=== PATIENT | male | born 1950 | race African-American/Black ===

== ENCOUNTER 2017-11-01 12:33 | Emergency (ER) | payer MEDICARE ==
[~2017-11-01] VITALS: Ht 177.8 cm; Wt 85.0 kg
[2017-11-01] MEDS ORDERED: ASPI-986 PO (12:51)
[2017-11-01] MEDS ORDERED: LISI2.5T47 PO (12:51)
[2017-11-01] MEDS ORDERED: HJ10 IJ (12:51)
[2017-11-01] MEDS ORDERED: ATOR10TA PO (12:51)
[2017-11-01] MEDS ORDERED: FURO-152 PO (12:51)
[2017-11-01] MEDS ORDERED: CARV3.1242 PO (12:51)
[2017-11-01] MEDS ORDERED: LORA2VIA33 IJ (12:51)
[2017-11-01 17:02] VITALS: BP 144/99
== END 2017-11-01 17:15 | disposition home or self-care (01) ==
LOC: ER 12:33
DX: S62.642A Nondisplaced fracture of proximal phalanx of right middle finger, initial encounter for closed fracture (principal); S62.614A Displaced fracture of proximal phalanx of right ring finger, initial encounter for closed fracture; S00.03XA Contusion of scalp, initial encounter; J44.9 Chronic obstructive pulmonary disease, unspecified; I10 Essential (primary) hypertension; Z79.82 Long term (current) use of aspirin; F03.90 Unspecified dementia, unspecified severity, without behavioral disturbance, psychotic disturbance, mood disturbance, and anxiety; W01.0XXA Fall on same level from slipping, tripping and stumbling without subsequent striking against object, initial encounter; Y93.89 Activity, other specified; Y92.89 Other specified places as the place of occurrence of the external cause; Y99.8 Other external cause status
CPT/HCPCS: 29130; 70450; 73120; 99284

== ENCOUNTER 2018-05-03 13:48 | Inpatient (IN) | payer MEDICARE, MEDICAID ==
[~2018-05-03] VITALS: Ht 182.9 cm; Wt 85.7 kg
[~2018-05-03 13:48] MED LIST: ASPI-986 PO; ATOR10TA PO; CARV3.1242 PO; FURO-152 PO; HJ10 IJ; LISI2.5T47 PO; LORA2VIA34 IJ
[2018-05-03] MEDS ORDERED: ACETAMINOPHEN 325MG TABLET PO PRN (18:45)
[2018-05-03] MEDS ORDERED: OXYCODONE HCL/ACETAMINOPHEN 5/325MG TABLET PO PRN (18:45)
[2018-05-03] MEDS ORDERED: IPRATROPIUM/ALBUTEROL 0.5-3(2.5)MG/3ML NEB HHN PRN (18:45)
[2018-05-03 19:56] VITALS: BP 125/70
[2018-05-03 20:00] VITALS: BP 127/70
[2018-05-03] MEDS ORDERED: CLONIDINE 0.1MG TABLET PO PRN (20:15)
[2018-05-03] MEDS ORDERED: ONDANSETRON HCL 4MG/2ML INJ IV PRN (20:15)
[2018-05-03] MEDS ORDERED: ENOXAPARIN 40MG/0.4ML SYR SUBCUT SCH (20:15)
[2018-05-03] MEDS ORDERED: NITROGLYCERIN 0.4MG TABLET SL SL PRN (20:30)
[2018-05-03] MEDS: BACLOFEN 10MG TABLET PO SCH (20:34)
[2018-05-03] MEDS: ASCORBIC ACID 500 MG TABLET PO SCH (20:34)
[2018-05-03] MEDS: CARVEDILOL 3.125 MG TABLET PO SCH (20:35)
[2018-05-03] MEDS: HYDROCODONE/ACETAMINOPHEN 5/325MG TABLET PO PRN (20:35)
[2018-05-03] MEDS: SENNOSIDES/DOCUSATE SOD 8.6/50MG TABLET PO SCH (20:35)
[2018-05-03] MEDS: LIDOCAINE 5% PATCH TOP SCH (22:00)
[2018-05-03 22:07] LABS: BASOPHILS % 0.8 % (0.0-2.0); EOSINOPHILS % 10.5 % (0.0-5.0); HEMATOCRIT. 25.5 % (42.0-52.0); HEMOGLOBIN. 9.1 g/dL (14.0-18.0); LYMPHOCYTES % 46.1 % (20.0-50.0); MEAN CORPUSCULAR HEMOGLOBIN 39.1 pg (28.0-32.0); MEAN CORPUSCULAR VOLUME 109.6 fL (80.0-94.0); MONOCYTES % 11.1 % (2.0-8.0); NEUTROPHILS % 31.5 % (40.0-76.0); RED BLOOD CELL COUNT 2.33 mill/uL (4.7-6.1); RED CELL DISTRIBUTION WIDTH 14.2 % (11.6-14.6)
[2018-05-03 22:14] LABS: CHLORIDE 109 mEq/L (98-107)
[2018-05-03 22:23] LABS: HDL CHOLESTEROL 41 mg/dL (40-59); LDL CHOLESTEROL 46 mg/dL (5-100); T4 FREE 1.06 ng/dL (0.76-1.46)
[2018-05-03 22:28] LABS: MEAN PLATELET VOLUME 7.2 fl (7.4-10.4); PLATELET 59 x1000/uL (130-400)
[2018-05-03] MEDS: FAMOTIDINE 20MG TABLET PO SCH (23:00)
[2018-05-04 02:14] LABS: FOLIC ACID (FOLATE) SERUM 13.9 ng/mL (>5.38); TOTAL IRON BINDING CAPACITY 164 ug/dL (250-450)
[2018-05-04] MEDS: IPRATROPIUM/ALBUTEROL 0.5-3(2.5)MG/3ML NEB HHN SCH ×4 (03:00→20:10)
[2018-05-04 04:00] VITALS: BP 125/65
[2018-05-04] MEDS: BACLOFEN 10MG TABLET PO SCH ×3 (05:14→21:11)
[2018-05-04 08:00] VITALS: BP 132/67
[2018-05-04] MEDS: BUDESONIDE 0.5MG/2ML NEB HHN SCH ×3 (09:06→20:10)
[2018-05-04] MEDS: FAMOTIDINE 20MG TABLET PO SCH ×2 (09:41→21:11)
[2018-05-04] MEDS: MULTIVITAMINS,THER W-MINERALS TABLET PO SCH (09:42)
[2018-05-04] MEDS: ASPIRIN 325MG EC TABLET PO SCH (09:42)
[2018-05-04] MEDS: CARVEDILOL 3.125 MG TABLET PO SCH ×2 (09:42→21:00)
[2018-05-04] MEDS: ASCORBIC ACID 500 MG TABLET PO SCH ×2 (09:42→21:11)
[2018-05-04] MEDS: FUROSEMIDE 40MG TABLET PO SCH ×2 (09:43→17:22)
[2018-05-04] MEDS: LISINOPRIL 5MG TABLET PO SCH (09:43)
[2018-05-04] MEDS: SPIRONOLACTONE 50MG TABLET PO SCH (09:43)
[2018-05-04] MEDS: DOCUSATE SODIUM 100MG CAPSULE PO SCH ×2 (09:44→17:22)
[2018-05-04] MEDS: ZINC SULFATE 220 MG ( 50 ) CAPSULE PO SCH (09:44)
[2018-05-04] MEDS: LIDOCAINE 5% PATCH TOP SCH ×2 (09:45→21:12)
[2018-05-04 12:00] VITALS: BP 122/74
[2018-05-04 16:00] VITALS: BP 123/60
[2018-05-04 20:00] VITALS: BP 108/52
[2018-05-04] MEDS: ZOLPIDEM TARTRATE 5MG TABLET PO PRN (21:11)
[2018-05-04] MEDS: LORATADINE 10MG TABLET PO SCH (21:12)
[2018-05-04] MEDS: SENNOSIDES/DOCUSATE SOD 8.6/50MG TABLET PO SCH (21:12)
[2018-05-04] MEDS: FLUTICASONE PROPIONATE 50MCG/SPRAY BOTTLE BOTHNSTRLS SCH (21:12)
[2018-05-04 21:42] LABS: HEPATITIS B SURFACE ANTIGEN NEGATIVE
[2018-05-04 22:12] LABS: HEPATITIS A AB IGM NEGATIVE (NEGATIVE)
[2018-05-05] VITALS: BP 126/54
[2018-05-05] MEDS: IPRATROPIUM/ALBUTEROL 0.5-3(2.5)MG/3ML NEB HHN SCH ×4 (00:05→20:19)
[2018-05-05 04:00] VITALS: BP 112/63
[2018-05-05] MEDS: BACLOFEN 10MG TABLET PO SCH ×3 (05:18→21:13)
[2018-05-05] MEDS: HYDROCODONE/ACETAMINOPHEN 5/325MG TABLET PO PRN (05:18)
[2018-05-05] MEDS: BUDESONIDE 0.5MG/2ML NEB HHN SCH ×2 (08:47→20:19)
[2018-05-05] MEDS: DOCUSATE SODIUM 100MG CAPSULE PO SCH ×2 (09:00→17:00)
[2018-05-05] MEDS: ASPIRIN 325MG EC TABLET PO SCH (09:26)
[2018-05-05] MEDS: ASCORBIC ACID 500 MG TABLET PO SCH ×2 (09:26→21:13)
[2018-05-05] MEDS: CARVEDILOL 3.125 MG TABLET PO SCH ×2 (09:26→21:00)
[2018-05-05] MEDS: LISINOPRIL 5MG TABLET PO SCH (09:27)
[2018-05-05] MEDS: FAMOTIDINE 20MG TABLET PO SCH ×2 (09:27→21:13)
[2018-05-05] MEDS: ZINC SULFATE 220 MG ( 50 ) CAPSULE PO SCH (09:28)
[2018-05-05] MEDS: MULTIVITAMINS,THER W-MINERALS TABLET PO SCH (09:28)
[2018-05-05] MEDS: FUROSEMIDE 40MG TABLET PO SCH ×2 (09:30→17:51)
[2018-05-05] MEDS: SPIRONOLACTONE 50MG TABLET PO SCH (09:30)
[2018-05-05] MEDS: FLUTICASONE PROPIONATE 50MCG/SPRAY BOTTLE BOTHNSTRLS SCH ×2 (09:31→21:13)
[2018-05-05] MEDS: LIDOCAINE 5% PATCH TOP SCH ×2 (09:32→21:12)
[2018-05-05 20:00] VITALS: BP 104/51
[2018-05-05] MEDS: LORATADINE 10MG TABLET PO SCH (21:13)
[2018-05-05] MEDS: ZOLPIDEM TARTRATE 5MG TABLET PO PRN (21:13)
[2018-05-05] MEDS: SENNOSIDES/DOCUSATE SOD 8.6/50MG TABLET PO SCH (21:13)
[2018-05-06] VITALS: BP 120/60
[2018-05-06 04:00] VITALS: BP 135/75
[2018-05-06] MEDS: BACLOFEN 10MG TABLET PO SCH ×3 (05:29→22:45)
[2018-05-06 08:00] VITALS: BP 127/68
[2018-05-06] MEDS: DOCUSATE SODIUM 100MG CAPSULE PO SCH ×3 (09:00→22:39)
[2018-05-06] MEDS: LISINOPRIL 5MG TABLET PO SCH (09:00)
[2018-05-06] MEDS: FUROSEMIDE 40MG TABLET PO SCH ×2 (09:00→16:47)
[2018-05-06] MEDS: FLUTICASONE PROPIONATE 50MCG/SPRAY BOTTLE BOTHNSTRLS SCH ×2 (09:23→21:00)
[2018-05-06] MEDS: ZINC SULFATE 220 MG ( 50 ) CAPSULE PO SCH (09:24)
[2018-05-06] MEDS: ASCORBIC ACID 500 MG TABLET PO SCH ×2 (09:24→22:40)
[2018-05-06] MEDS: LIDOCAINE 5% PATCH TOP SCH ×2 (09:24→21:00)
[2018-05-06] MEDS: MULTIVITAMINS,THER W-MINERALS TABLET PO SCH (09:24)
[2018-05-06] MEDS: FAMOTIDINE 20MG TABLET PO SCH ×2 (09:25→22:41)
[2018-05-06] MEDS: SPIRONOLACTONE 50MG TABLET PO SCH (09:25)
[2018-05-06] MEDS: CARVEDILOL 3.125 MG TABLET PO SCH ×2 (09:25→22:41)
[2018-05-06] MEDS: ASPIRIN 325MG EC TABLET PO SCH (09:26)
[2018-05-06] MEDS: IPRATROPIUM/ALBUTEROL 0.5-3(2.5)MG/3ML NEB HHN SCH ×3 (10:22→19:55)
[2018-05-06] MEDS: BUDESONIDE 0.5MG/2ML NEB HHN SCH ×2 (10:23→19:55)
[2018-05-06 12:00] VITALS: BP 108/61
[2018-05-06 12:18] LABS: BASOPHILS % 0.7 % (0.0-2.0); EOSINOPHILS % 8.8 % (0.0-5.0); HEMATOCRIT. 28.4 % (42.0-52.0); HEMOGLOBIN. 10.1 g/dL (14.0-18.0); LYMPHOCYTES % 39.9 % (20.0-50.0); MEAN CORPUSCULAR HEMOGLOBIN 39.2 pg (28.0-32.0); MEAN CORPUSCULAR VOLUME 110.3 fL (80.0-94.0); MEAN PLATELET VOLUME 7.5 fl (7.4-10.4); MONOCYTES % 11.4 % (2.0-8.0); NEUTROPHILS % 39.2 % (40.0-76.0); PLATELET 64 x1000/uL (130-400); RED BLOOD CELL COUNT 2.57 mill/uL (4.7-6.1); RED CELL DISTRIBUTION WIDTH 14.2 % (11.6-14.6)
[2018-05-06 12:21] LABS: CHLORIDE 103 mEq/L (98-107)
[2018-05-06 16:00] VITALS: BP 108/62
[2018-05-06 20:00] VITALS: BP 101/59
[2018-05-06] MEDS: SENNOSIDES/DOCUSATE SOD 8.6/50MG TABLET PO SCH (22:39)
[2018-05-06] MEDS: LORATADINE 10MG TABLET PO SCH (22:40)
[2018-05-06] MEDS: ZOLPIDEM TARTRATE 5MG TABLET PO PRN (22:41)
[2018-05-07] VITALS: BP 114/69
[2018-05-07] MEDS: IPRATROPIUM/ALBUTEROL 0.5-3(2.5)MG/3ML NEB HHN SCH ×3 (01:44→14:44)
[2018-05-07 04:00] VITALS: BP 118/79
[2018-05-07] MEDS: BACLOFEN 10MG TABLET PO SCH ×2 (05:55→14:46)
[2018-05-07 08:00] VITALS: BP 129/75
[2018-05-07] MEDS: ASCORBIC ACID 500 MG TABLET PO SCH (09:07)
[2018-05-07] MEDS: FUROSEMIDE 40MG TABLET PO SCH (09:07)
[2018-05-07] MEDS: SPIRONOLACTONE 50MG TABLET PO SCH (09:07)
[2018-05-07] MEDS: ZINC SULFATE 220 MG ( 50 ) CAPSULE PO SCH (09:07)
[2018-05-07] MEDS: FAMOTIDINE 20MG TABLET PO SCH (09:07)
[2018-05-07] MEDS: MULTIVITAMINS,THER W-MINERALS TABLET PO SCH (09:07)
[2018-05-07] MEDS: ASPIRIN 325MG EC TABLET PO SCH (09:07)
[2018-05-07] MEDS: CARVEDILOL 3.125 MG TABLET PO SCH (09:07)
[2018-05-07] MEDS: LISINOPRIL 5MG TABLET PO SCH (09:08)
[2018-05-07] MEDS: LIDOCAINE 5% PATCH TOP SCH (09:09)
[2018-05-07] MEDS: FLUTICASONE PROPIONATE 50MCG/SPRAY BOTTLE BOTHNSTRLS SCH (09:10)
[2018-05-07 12:00] VITALS: BP 132/74
[2018-05-07 13:23] VITALS: BP_SYST 129; BP_SYST 132; BP_DIAS 74; BP_DIAS 75
[2018-05-07 16:00] VITALS: BP 115/54
== END 2018-05-07 17:02 | DRG 291 ==
LOC: 6EST 13:48
PROVIDERS: ADMIT Internal Medicine; ATTEND Internal Medicine
DX: I11.0 Hypertensive heart disease with heart failure (principal); E43 Unspecified severe protein-calorie malnutrition; J96.00 Acute respiratory failure, unspecified whether with hypoxia or hypercapnia; K76.6 Portal hypertension; I50.9 Heart failure, unspecified; D64.9 Anemia, unspecified; E78.5 Hyperlipidemia, unspecified; E83.51 Hypocalcemia; J00 Acute nasopharyngitis [common cold]; J44.9 Chronic obstructive pulmonary disease, unspecified; R07.81 Pleurodynia; R07.89 Other chest pain; K76.9 Liver disease, unspecified; G89.29 Other chronic pain; M54.9 Dorsalgia, unspecified; B19.20 Unspecified viral hepatitis C without hepatic coma; J32.9 Chronic sinusitis, unspecified; D63.8 Anemia in other chronic diseases classified elsewhere; D69.6 Thrombocytopenia, unspecified; Z87.891 Personal history of nicotine dependence; Z68.25 Body mass index [BMI] 25.0-25.9, adult; E78.00 Pure hypercholesterolemia, unspecified
CPT/HCPCS: 36415; 71045; 76705; 80048; 80061; 80076; 82607; 82746; 83036; 83540; 83550; 83880; 84439; 84443; 84484; 86705; 86709; 86803; 87340; 87804; 93005; 93306; 93970; 94640; J7620; J7626